=== PATIENT | female | born 1955 ===

== ENCOUNTER 2022-04-04 15:08 | Emergency (ER) | payer OTHER, MEDICARE ==
[2022-04-04] MEDS ORDERED: IBUPROFEN800 MG PO (17:45)
[2022-04-04] MEDS ORDERED: CYCLOBENZAPRINE10 MG PO (17:45)
== END 2022-04-04 18:04 | disposition home or self-care (01) ==
LOC: ER1 15:08
DX: S13.4XXA Sprain of ligaments of cervical spine, initial encounter (principal); S23.3XXA Sprain of ligaments of thoracic spine, initial encounter; S33.5XXA Sprain of ligaments of lumbar spine, initial encounter; I10 Essential (primary) hypertension; V49.9XXA Car occupant (driver) (passenger) injured in unspecified traffic accident, initial encounter; Y92.410 Unspecified street and highway as the place of occurrence of the external cause
CPT/HCPCS: 72072; 72110; 72125; 99284